=== PATIENT | female | born 1995 ===

== ENCOUNTER 2022-01-18 20:44 | Outpatient (REF) | payer SELFPAY ==
[2022-01-18 20:09] LABS: Bilirubin Negative (Negative); Blood Negative (Negative); Clarity Clear (Clear); Glucose Negative (Negative); Ketones Negative (Negative); Leukocyte Esterase Negative (Negative); Nitrite Negative (Negative); Specific Gravity >= 1.030 (1.005-1.025); Urobilinogen 0.2 EU/dL (Up TO 0.2)
== END 2022-01-18 20:45 | disposition home or self-care (01) ==
LOC: LBN 20:44
PROVIDERS: Visit Provider Family Medicine
DX: R31.9 Hematuria, unspecified (principal)
CPT/HCPCS: 81003

== ENCOUNTER 2022-01-30 14:52 | Emergency (ER) | payer BC, SELFPAY ==
[2022-01-30 15:09] VITALS: BP 113/64; PULSE 61; RESP 17; TEMP 37; O2SAT 97
[2022-01-30 15:20] LABS: Bilirubin Negative (Negative); Blood Negative (Negative); Clarity Clear (Clear); Glucose Negative (Negative); Ketones Negative (Negative); Leukocyte Esterase Small (Negative); Nitrite Negative (Negative); Urobilinogen 0.2 EU/dL (Up TO 0.2)
--- NOTE | 2022-01-30 15:22 | ED.GENADUL_ITS ---
Discharge Plan Disposition Patient Disposition: HOME Condition: Improving Discharge Details Clinical Impression: UTI (urinary tract infection) Primary Care Provider: Claire,Local ED Provider: Jared Rosales Home Meds and New Rx's Prescriptions: New cephalexin 500 mg capsule 500 mg PO TID 5 Days Qty: 15 0RF Discharge Instructions Instructions: Urinary Tract Infection in Women (ED) Additional Instructions: Home to rest today. Small, frequent sips of fluid to maintain good hydration. Take antibiotics as prescribed. 4 times daily for the first 24 hours, then 3 times daily until finished. Follow-up with Dr. Richards if not improved in 3 to 5 days time. Return to the emergency department for any acute concerns. Medical Decision Making This is a 26-year-old female who reports nearly a week of urinary tract irritation with increased frequency and urgency of voiding. [place] she had a urinary tract infection and had a outpatient urinalysis performed last week which was negative. She returns today with 2 days of increasing symptoms. She has not had fever, chills or vomiting. She is well-appearing and her exam is reassuring. Today's urinalysis is positive for leuk esterase. Microscopic urinalysis HPI General Mode of arrival: ambulatory . Date/Time Provider Initiated Documentation: 01/30/22 14:53 . Limitations to Documentation: no limitations . Information obtained by: patient . History of Present Illness 26 year old F presents to the emergency department with the chief complaint of Increased urinary urgency, frequency over days time, described as mild, moderate and similar to prior episodes, Quality is described as burning, and is localized to the abdomen and pelvis. Patient reports no radiation. Patient started experiencing this day(s) and it has been intermittent. improves with No relieving factors improve symptom(s), No exacerbating factors reported . Patient notes denies fever/chills, loss of appetite and nausea/vomiting. Patient did receive the following treatments prior to arrival, none Related Data Home Medications Medication Instructions Recorded Confirmed cephalexin 500 mg capsule 500 mg PO TID 5 Days #15 cap 01/30/22 Previous Rx's Medication Instructions Recorded cephalexin 500 mg capsule 500 mg PO TID 5 Days #15 cap 01/30/22 Allergies Allergy/AdvReac Type Severity Reaction Status Date / Time No Known Allergies Allergy Unverified 01/30/22 15:15 General Stated Complaint: Urinary DEANGELO: 4 Review of Systems Narrative: No fever, vomiting, vaginal discharge or bleeding. No lesions or sores. No new sexual partners. 8 systems were reviewed and otherwise negative PFSH All Active Problems (Updated 01/30/22 @ 15:26 by Jared Rosales MD) UTI (urinary tract infection) (Acute) Social History Smoking/Tobacco Use Status: Current every day Tobacco Type: e-cigarettes Smoking risk assessment performed?: Yes Alcohol Intake: current Alcohol Intake frequency: 3 or more drinks per day Alcohol type: beer Substance use type: does not use Do you feel safe at home: Yes Do you feel safe in your relationship?: Yes Exam Narrative Exam Narrative: GEN: awake, alert, oriented 3. Pleasant, well groomed, interactive. HEAD: Normocephalic, atraumatic EYES: PERRL, EOMI NECK: Full ROM, no SANDIP, no menigismus CHEST/RESP: Nontender, clear to auscultation bilateral, no wheeze/rhonchi/rales CARDIOVASCULAR: RRR, no murmur, rub yuniel. 2+ Rad pulse bilateral ABDOMEN: Soft, nontender, no mass. +Bowel sounds EXT: Full ROM, no edema, no rash Neuro: Grossly normal neurologic exam, conversant, interactive. Psych: Speech fluent, thoughts congruent, affect normal Course Vital Signs Vital signs: Vital Signs Temperature 37.0 C 01/30/22 15:09 Pulse 61 01/30/22 15:09 Respiratory Rate 17 01/30/22 15:09 Blood Pressure 113/64 01/30/22 15:09 Pulse Oximetry 97 01/30/22 15:09 Temperature 37.0 C 01/30/22 15:09 Temperature Source Temporal Artery Scan 01/30/22 15:09 Pulse 61 01/30/22 15:09 Respiratory Rate 17 01/30/22 15:09 Respiratory Effort Non-Labored 01/30/22 15:13 Blood Pressure 113/64 01/30/22 15:09 Blood Pressure Position Sitting 01/30/22 15:09 Pulse Oximetry 97 01/30/22 15:09 Oxygen Delivery Method Room Air 01/30/22 15:09 Oxygen Flow Rate 0 01/30/22 15:09 Pain Level 7 01/30/22 15:13 Lab/Test Results Lab/Test Results: Laboratory Tests Range/Units 01/30/22 15:08 Urine Color (Yellow) Straw Urine Clarity (Clear) Clear Urine pH (5-8) 6.0 Ur Specific [place] (1.005-1.025) 1.010 Urine Protein (Negative) mg/dL Negative Urine Ketones (Negative) mg/dL Negative Urine Blood (Negative) Negative Urine Nitrite (Negative) Negative Urine Bilirubin (Negative) Negative Urine Urobilinogen (Up TO 0.2) EU/dL 0.2 Ur Leukocyte Esterase (Negative) Small H Urine Glucose (Negative) mg/dL Negative POC- Test(urine) Negative PAWSS Have you Been Recently Intoxicated or Drunk Within the Last 30 days?: No Have you Ever Experienced Previous Episodes of Alcohol Withdrawal?: No Have you ever Experienced Withdrawal Seizures?: No Have you ever Experienced Delirium Tremens(DT)s?: No Have you ever undergone Alcohol Rehabilitation Treatment (i.e, inpt ot outpatient treatment programs)?: No Have you ever Experienced Blackouts?: No Have you ever Combined Alcohol with other Downers within the last 90 days?: No Have you ever Combined Alcohol with any other Substance of Abuse during the last 90 days?: No Result: 0
[2022-01-30 15:30] LABS: Bacteria Rare HPF (Negative); C & S Indicated? Yes; Crystals Negative HPF (Negative); Epithelial Cells Few HPF (Negative); Mucus Negative (Negative); RBC Negative HPF (0-2)
[2022-01-30] MEDS: Cephalexin 500 MG CAP, 4 CAPS/BTL PO (15:33)
== END 2022-01-30 15:30 | disposition home or self-care (01) ==
PROVIDERS: Emergency Provider Emergency Medicine
DX: N39.0 Urinary tract infection, site not specified (principal); B96.89 Other specified bacterial agents as the cause of diseases classified elsewhere
CPT/HCPCS: 81025; 99283; 81003; 81015; 87086

== ENCOUNTER 2022-02-08 16:50 | Outpatient (REF) | payer BC, SELFPAY | END 2022-02-08 16:51 | disposition home or self-care (01) | LOC: LBN 16:50 | PROVIDERS: Visit Provider Nurse Practitioner Family | DX: R39.89 Other symptoms and signs involving the genitourinary system (principal) | CPT/HCPCS: 87086 ==

== ENCOUNTER 2022-03-01 21:44 | Outpatient (REF) | payer BC, SELFPAY ==
[2022-03-02 15:31] LABS: COVID-19 RT-PCR UVMMC Result Positive (Negative)
== END 2022-03-01 21:45 | disposition home or self-care (01) ==
LOC: LBN 21:44
PROVIDERS: PCP Nurse Practitioner Family; Visit Provider Nurse Practitioner Family
DX: Z20.822 Contact with and (suspected) exposure to COVID-19 (principal)
CPT/HCPCS: U0003

== ENCOUNTER 2022-07-26 16:26 | Outpatient (REF) | payer BC, SELFPAY ==
[2022-07-28 11:37] LABS: COVID-19 RT-PCR UVMMC Result Negative (Negative)
== END 2022-07-26 16:27 | disposition home or self-care (01) ==
LOC: LBN 16:26
PROVIDERS: PCP Family Medicine; Visit Provider Nurse Practitioner Family
DX: U07.1 COVID-19 (principal)
CPT/HCPCS: U0003